=== PATIENT | female | born 1980 ===

== ENCOUNTER → 2018-05-28 | Outpatient (CLI) | payer BC ==
[~2018-05-28] MED LIST: AZIT250 PO; HYDACE5 PO; HYDGUAL120 PO; MULVITMINE; NYQUIL; STOMUL
== END | disposition home or self-care (01) ==
LOC: PLD 08:06 → LAB SHORT 08:06
DX: D22.5 Melanocytic nevi of trunk (principal)
CPT/HCPCS: 88305

== ENCOUNTER → 2020-08-03 | Outpatient (CLI) | payer BC | END | disposition home or self-care (01) | LOC: PLD 11:12 → LAB SHORT 11:12 | DX: D22.5 Melanocytic nevi of trunk (principal); D22.62 Melanocytic nevi of left upper limb, including shoulder | CPT/HCPCS: 88305 ==

== ENCOUNTER → 2021-01-31 | Outpatient (CLI) | payer BC | END | disposition home or self-care (01) | LOC: LAB SHORT 11:17 → LAB 11:17 | DX: D22.72 Melanocytic nevi of left lower limb, including hip (principal) | CPT/HCPCS: 88305 ==

== ENCOUNTER → 2021-08-08 | Outpatient (CLI) | payer BC | END | disposition home or self-care (01) | LOC: LAB SHORT 11:24 | DX: L91.8 Other hypertrophic disorders of the skin (principal) | CPT/HCPCS: 88304 ==